=== PATIENT | female | born 1995 | race Caucasian/White ===

== ENCOUNTER 2018-04-27 16:19 | Emergency (ER) | payer OTHER ==
[~2018-04-27] VITALS: Ht 162.6 cm; Wt 52.2 kg
[2018-04-27 16:23] VITALS: BP 135/85
[2018-04-27] MEDS ORDERED: HYDROCODONE-AP1 EAC6 PO (16:39)
[2018-04-27] MEDS ORDERED: CLEOCIN HCL150 MG PO (16:39)
[2018-04-27] MEDS ORDERED: MOBIC7.5 MG PO (16:39)
== END 2018-04-27 16:56 | disposition home or self-care (01) ==
LOC: M.ERS 16:19
DX: S02.5XXA Fracture of tooth (traumatic), initial encounter for closed fracture (principal); F41.9 Anxiety disorder, unspecified; F32.9 Major depressive disorder, single episode, unspecified; Z90.49 Acquired absence of other specified parts of digestive tract; Z88.0 Allergy status to penicillin; X58.XXXA Exposure to other specified factors, initial encounter; Y93.89 Activity, other specified; Y92.89 Other specified places as the place of occurrence of the external cause; Y99.8 Other external cause status

== ENCOUNTER 2018-07-08 04:55 | Emergency (ER) | payer OTHER ==
[~2018-07-08] VITALS: Ht 162.6 cm; Wt 54.4 kg
[~2018-07-08 04:55] MED LIST: CLEOCIN HCL150 MG PO; HYDROCODONE-AP1 EAC6 PO; MOBIC7.5 MG PO
[2018-07-08 05:02] VITALS: BP 105/72
[2018-07-08] MEDS ORDERED: NORCO 5-325 TA1 EACH PO (05:18)
[2018-07-08] MEDS ORDERED: CLEOCIN HCL150 MG PO (05:18)
[2018-07-08] MEDS ORDERED: IBUPROFEN 800800 M1 PO (05:18)
== END 2018-07-08 05:30 | disposition home or self-care (01) ==
LOC: M.ERS 04:55
DX: K08.89 Other specified disorders of teeth and supporting structures (principal); F41.9 Anxiety disorder, unspecified; F32.9 Major depressive disorder, single episode, unspecified; Z90.49 Acquired absence of other specified parts of digestive tract; Z88.0 Allergy status to penicillin

== ENCOUNTER 2018-07-22 08:45 | Emergency (ER) | payer OTHER ==
[~2018-07-22] VITALS: Ht 162.6 cm; Wt 54.4 kg
[~2018-07-22 08:45] MED LIST changes: +IBUPROFEN 800800 M1 PO; +NORCO 5-325 TA1 EACH PO
[2018-07-22] MEDS ORDERED: IBUPROFEN 400400 M2 PO (08:54)
[2018-07-22 10:07] VITALS: BP 132/75
== END 2018-07-22 10:08 | disposition home or self-care (01) ==
LOC: M.ERS 08:45
DX: S63.92XA Sprain of unspecified part of left wrist and hand, initial encounter (principal); X58.XXXA Exposure to other specified factors, initial encounter; Y93.89 Activity, other specified; Y92.89 Other specified places as the place of occurrence of the external cause; Y99.8 Other external cause status; F17.210 Nicotine dependence, cigarettes, uncomplicated; Z88.0 Allergy status to penicillin

== ENCOUNTER 2019-01-18 14:36 | Emergency (ER) | payer OTHER ==
[~2019-01-18] VITALS: Ht 160 cm; Wt 54.4 kg
[~2019-01-18 14:36] MED LIST changes: +IBUPROFEN 400400 M2 PO
[2019-01-18] MEDS ORDERED: NORCO 5-325 TA1 EAC1 PO (15:20)
[2019-01-18] MEDS ORDERED: BACTRIM DS TAB1 EAC1 PO (15:20)
[2019-01-18 15:33] VITALS: BP 141/67
== END 2019-01-18 15:35 | disposition home or self-care (01) ==
LOC: M.ERS 14:36
DX: N76.4 Abscess of vulva (principal); F32.9 Major depressive disorder, single episode, unspecified; F41.9 Anxiety disorder, unspecified; Z90.49 Acquired absence of other specified parts of digestive tract; F17.210 Nicotine dependence, cigarettes, uncomplicated; Z88.0 Allergy status to penicillin

== ENCOUNTER 2019-12-23 16:17 | Emergency (ER) | payer OTHER, MEDICAID ==
[~2019-12-23] VITALS: Ht 162.6 cm; Wt 68.0 kg
[~2019-12-23 16:17] MED LIST changes: +BACTRIM DS TAB1 EAC1 PO; +NORCO 5-325 TA1 EAC1 PO
[2019-12-23 16:42] LABS: URINE BILIRUBIN NEGATIVE (Negative); URINE BLOOD 3+ (Negative); URINE COLOR RED; URINE GLUCOSE-RANDOM NEGATIVE (Negative); URINE KETONES TRACE (Negative); URINE LEUKOCYTES-REFLEX TRACE (Negative); URINE NITRITE-REFLEX NEGATIVE (Negative); URINE PROTEIN 2+ (Negative); URINE SPECIFIC GRAVITY 1.025 (1.005-1.030)
[2019-12-23 16:43] LABS: URINE CLARITY CLOUDY
[2019-12-23 16:49] LABS: BACTERIA-REFLEX None Seen /HPF (None Seen); CASTS None Seen /LPF (None Seen); CRYSTALS None Seen /LPF (None Seen); SQUAMOUS 0-3 Few /LPF (0-3); URINE RBC >20 Many /HPF (0-2); URINE WBC-REFLEX 0-5 Rare /HPF (0-5)
[2019-12-23 17:09] LABS: ABSOLUTE BASOPHILS 0.1 thou/uL (0.0-0.2); ABSOLUTE EOSINOPHILS 0.2 thou/uL (0.0-0.7); ABSOLUTE LYMPHOCYTES 3.1 thou/uL (0.8-5.3); ABSOLUTE NEUTROPHILS 5.8 thou/uL (1.6-8.1); BASOPHILS 1.3 %; EOSINOPHILS 2.4 %; HEMOGLOBIN 13.3 gm/dL (12.0-15.0); LYMPHOCYTES 30.2 %; MCHC 33.3 g/dL (28.0-37.0); MCV 83.9 fL (80.0-100.0); MONOCYTES 9.5 %; MPV 9.2 fl. (7.2-11.1); NUCLEATED RBCS 0 /100WBC; PLATELET COUNT* 301 thou/uL (150-400); POLYS 56.6 %; RBC 4.76 mil/uL (4.20-5.00); RDW-CV 15.5 % (10.5-14.5); WBC 10.3 thou/uL (4.0-11.0)
[2019-12-23 17:18] LABS: APTT 29.6 Seconds (25.0-31.3); CREATININE 1.1 mg/dL (0.6-1.3); POTASSIUM 3.4 mmol/L (3.5-5.1)
[2019-12-23 17:22] LABS: ALBUMIN 3.8 g/dL (3.4-5.0); TOTAL BILIRUBIN 0.5 mg/dL (<0.1-1.0); TOTAL PROTEIN 7.6 g/dL (6.4-8.2)
[2019-12-23] MEDS ORDERED: TYLENOL WITH CO1 TA1 PO (18:17)
[2019-12-23 18:35] VITALS: BP 119/75
== END 2019-12-23 18:36 | disposition home or self-care (01) ==
LOC: M.ERS 16:17
PROVIDERS: Physician Assistant
DX: N93.9 Abnormal uterine and vaginal bleeding, unspecified (principal); N83.8 Other noninflammatory disorders of ovary, fallopian tube and broad ligament; F17.210 Nicotine dependence, cigarettes, uncomplicated; Z88.0 Allergy status to penicillin; Z90.49 Acquired absence of other specified parts of digestive tract

== ENCOUNTER 2020-11-23 08:12 | Emergency (ER) | payer OTHER ==
[~2020-11-23] VITALS: Ht 160 cm; Wt 56.2 kg
[~2020-11-23 08:12] MED LIST changes: +TYLENOL WITH CO1 TA1 PO
[2020-11-23 08:40] LABS: URINE BLOOD 3+ (Negative); URINE CLARITY CLEAR; URINE COLOR YELLOW; URINE GLUCOSE-RANDOM NEGATIVE (Negative); URINE KETONES NEGATIVE (Negative); URINE LEUKOCYTES-REFLEX 1+ (Negative); URINE NITRITE-REFLEX NEGATIVE (Negative); URINE PROTEIN NEGATIVE (Negative); URINE UROBILINOGEN 0.2 E.U./dl (0.2-1.0)
[2020-11-23 08:51] LABS: ABSOLUTE BASOPHILS 0.1 thou/uL (0.0-0.2); ABSOLUTE EOSINOPHILS 0.4 thou/uL (0.0-0.7); ABSOLUTE LYMPHOCYTES 2.9 thou/uL (0.8-5.3); ABSOLUTE MONOCYTES 1.6 thou/uL (0.0-1.2); ABSOLUTE NEUTROPHILS 10.3 thou/uL (1.6-8.1); BASOPHILS 0.8 %; EOSINOPHILS 2.3 %; HEMATOCRIT 36.2 % (37.0-47.0); HEMOGLOBIN 11.3 gm/dL (12.0-15.0); MCH 22.6 pg (26.0-34.0); MCHC 31.2 g/dL (28.0-37.0); MCV 72.5 fL (80.0-100.0); MONOCYTES 10.2 %; MPV 7.5 fl. (7.2-11.1); NUCLEATED RBCS 0 /100WBC; PLATELET COUNT* 320 thou/uL (150-400); POLYS 67.7 %; RBC 4.99 mil/uL (4.20-5.00); RDW-CV 20.4 % (10.5-14.5); WBC 15.3 thou/uL (4.0-11.0)
[2020-11-23 08:59] LABS: ICTOTEST (BILI CONFIRMATORY) Negative (Negative); URINE BILIRUBIN 1+ (Negative)
[2020-11-23 09:01] LABS: BACTERIA-REFLEX 1-9 Few /HPF (None Seen); CASTS None Seen /LPF (None Seen); CRYSTALS None Seen /LPF (None Seen); MUCUS None Seen strn/LPF (None Seen); SQUAMOUS 4-10 Moderate /LPF (0-3); URINE WBC-REFLEX 0-5 Rare /HPF (0-5)
[2020-11-23 09:02] LABS: CALCIUM 9.2 mg/dL (8.5-10.1); CREATININE 0.8 mg/dL (0.6-1.3)
[2020-11-23 09:06] LABS: ALBUMIN 3.7 g/dL (3.4-5.0); TOTAL BILIRUBIN 0.2 mg/dL (<0.1-1.0); TOTAL PROTEIN 7.5 g/dL (6.4-8.2)
[2020-11-23] MEDS ORDERED: FLAGYL500 M1 PO (10:18)
[2020-11-23] MEDS ORDERED: PREDNISONE 20 M20 M1 PO (10:18)
[2020-11-23] MEDS ORDERED: CIPROFLOXACIN500 M1 PO (10:18)
[2020-11-23 10:25] VITALS: BP 119/58
== END 2020-11-23 10:25 | disposition home or self-care (01) ==
LOC: M.ERS 08:12
PROVIDERS: Family Medicine
DX: K52.9 Noninfective gastroenteritis and colitis, unspecified (principal); F17.210 Nicotine dependence, cigarettes, uncomplicated; Z88.0 Allergy status to penicillin; Z90.49 Acquired absence of other specified parts of digestive tract

== ENCOUNTER 2020-12-23 23:46 | Emergency (ER) | payer OTHER ==
[~2020-12-23] VITALS: Ht 160 cm; Wt 44.0 kg
[~2020-12-23 23:46] MED LIST changes: +CIPROFLOXACIN500 M1 PO; +FLAGYL500 M1 PO; +PREDNISONE 20 M20 M1 PO
[2020-12-23 23:50] VITALS: BP 131/76
[2020-12-24] MEDS ORDERED: KEFLEX500 M1 PO (00:28)
[2020-12-24] MEDS ORDERED: ERYTHROMYCIN E3.5 G3 OPHTHALMIC (00:28)
[2020-12-24] MEDS ORDERED: HYDROCODON-ACE1 EAC8 PO (00:28)
== END 2020-12-24 00:20 | disposition home or self-care (01) ==
LOC: M.ERS 23:46
DX: K08.89 Other specified disorders of teeth and supporting structures (principal); H10.9 Unspecified conjunctivitis; H11.31 Conjunctival hemorrhage, right eye; F17.210 Nicotine dependence, cigarettes, uncomplicated; Z90.49 Acquired absence of other specified parts of digestive tract; Z88.0 Allergy status to penicillin

== ENCOUNTER 2020-12-27 05:48 | Emergency (ER) | payer OTHER ==
[~2020-12-27] VITALS: Ht 160 cm; Wt 45.4 kg
[~2020-12-27 05:48] MED LIST changes: +ERYTHROMYCIN E3.5 G3 OPHTHALMIC; +HYDROCODON-ACE1 EAC8 PO; +KEFLEX500 M1 PO
[2020-12-27] MEDS ORDERED: [UNRECOGNIZED DRUG - REMARK] (05:55)
[2020-12-27 07:13] LABS: ABSOLUTE BASOPHILS 0.1 thou/uL (0.0-0.2); ABSOLUTE EOSINOPHILS 0.2 thou/uL (0.0-0.7); ABSOLUTE LYMPHOCYTES 2.9 thou/uL (0.8-5.3); ABSOLUTE NEUTROPHILS 3.9 thou/uL (1.6-8.1); EOSINOPHILS 1.9 %; HEMATOCRIT 34.5 % (37.0-47.0); HEMOGLOBIN 10.8 gm/dL (12.0-15.0); LYMPHOCYTES 35.7 %; MCHC 31.3 g/dL (28.0-37.0); MCV 73.4 fL (80.0-100.0); MONOCYTES 12.8 %; MPV 7.5 fl. (7.2-11.1); NUCLEATED RBCS 0 /100WBC; PLATELET COUNT* 432 thou/uL (150-400); POLYS 48.6 %; RBC 4.69 mil/uL (4.20-5.00); RDW-CV 21.4 % (10.5-14.5); WBC 8.1 thou/uL (4.0-11.0)
[2020-12-27 07:31] LABS: CALCIUM 8.9 mg/dL (8.5-10.1); CREATININE 0.8 mg/dL (0.6-1.3); POTASSIUM 4.1 mmol/L (3.5-5.1)
[2020-12-27 08:40] LABS: ANISOCYTOSIS 2+; OVALOCYTES 1+
[2020-12-27 08:41] LABS: HYPOCHROMASIA 1+; MICROCYTES 1+
[2020-12-27 08:45] LABS: PLATELET ESTIMATE INCREASED
[2020-12-27] MEDS ORDERED: CLEOCIN HCL150 MG PO (09:29)
[2020-12-27] MEDS ORDERED: GENTAK5 ML INTRAOCULR (09:29)
[2020-12-27 09:42] VITALS: BP 98/59
[2020-12-27] MEDS ORDERED: HYDROCODON-ACE1 EAC8 PO (22:13)
== END 2020-12-27 09:43 | disposition still patient (30) ==
LOC: M.ERS 05:48
PROVIDERS: Emergency Medicine
DX: K02.9 Dental caries, unspecified (principal); L03.213 Periorbital cellulitis; H11.31 Conjunctival hemorrhage, right eye; F17.210 Nicotine dependence, cigarettes, uncomplicated; Z90.49 Acquired absence of other specified parts of digestive tract; Z88.0 Allergy status to penicillin

== ENCOUNTER 2020-12-27 21:59 | Emergency (ER) | payer OTHER ==
[~2020-12-27] VITALS: Ht 160 cm; Wt 45.4 kg
[~2020-12-27 21:59] MED LIST changes: +GENTAK5 ML INTRAOCULR; +[UNRECOGNIZED DRUG - REMARK]
[2020-12-27 22:03] VITALS: BP 150/83
[2020-12-27] MEDS ORDERED: HYDROCODON-ACE1 EAC8 PO (22:13)
== END 2020-12-27 22:19 | disposition home or self-care (01) ==
LOC: M.ERS 21:59
DX: S00.11XA Contusion of right eyelid and periocular area, initial encounter (principal); H11.31 Conjunctival hemorrhage, right eye; K02.9 Dental caries, unspecified; F17.210 Nicotine dependence, cigarettes, uncomplicated; Z88.0 Allergy status to penicillin; Z90.49 Acquired absence of other specified parts of digestive tract; X58.XXXA Exposure to other specified factors, initial encounter; Y93.89 Activity, other specified; Y92.89 Other specified places as the place of occurrence of the external cause; Y99.8 Other external cause status

== ENCOUNTER 2021-06-15 08:26 | Emergency (ER) | payer OTHER ==
[~2021-06-15] VITALS: Ht 162.6 cm; Wt 54.4 kg
[2021-06-15 10:01] VITALS: BP 137/78
== END 2021-06-15 10:02 | disposition left against medical advice (07) ==
LOC: M.ERS 08:26
DX: Z53.21 Procedure and treatment not carried out due to patient leaving prior to being seen by health care provider (principal)